=== PATIENT | female | born 1960 | race Caucasian/White ===

== ENCOUNTER → 2023-11-08 14:42 | Outpatient (CLI) | payer MEDICAID, SELFPAY | LOC: SL 14:48 | PROVIDERS: PCP Family Medicine; Visit Provider Nurse Practitioner Family | DX: R06.83 Snoring (principal); G47.36 Sleep related hypoventilation in conditions classified elsewhere | CPT/HCPCS: G0399 ==

== ENCOUNTER 2023-11-21 06:37 | Outpatient (CLI) | payer MEDICAID, SELFPAY ==
--- NOTE | 2023-11-21 07:53 | CA_ITS ---
FINAL REPORT TECHNIQUE: Color Doppler, duplex Doppler and sheikh scale sonography of the bilateral neck vasculature was performed. Velocities were measured in the carotid arteries. Stenosis evaluation based on velocity criteria. CLINICAL HISTORY: Eval for MILAN, history of TIA, scalp tingling, Smoker COMPARISON: None FINDINGS: The peak systolic velocity of the right common carotid artery is 96 cm/sec and internal carotid artery 126 cm/sec. The diastolic velocity in the internal carotid artery is 33 cm/sec. The ICA/CCA ratio is 1.55. Visually, a moderate amount of plaque is seen. These findings are consistent with less than 50% stenosis. The external carotid artery is patent. The right vertebral artery is patent with antegrade flow. The peak systolic velocity of the left common carotid artery is 95 cm/sec and internal carotid artery 139 cm/sec. The diastolic velocity in the internal carotid artery is 45 cm/sec. The ICA/CCA ratio is 1.46. Visually, a moderate amount of plaque is seen. These findings are consistent with less than 50% stenosis. The external carotid artery is patent. The left vertebral artery is patent with antegrade flow. IMPRESSION: Less than 50% stenosis in the carotid arteries bilaterally. Bilateral patent vertebral arteries. If indicated, CTA or MRA could further evaluate. Reviewed, Interpreted and Dictated by Miguel Abbott III, MD Transcribed by Lucita Rapp Authenticated and [facility]
--- NOTE | 2023-11-21 07:57 | XR_ITS ---
FINAL REPORT CLINICAL HISTORY: Back pain, hx of vertebral fracture, hyperreflexia COMPARISON: None FINDINGS: 3 views of the lumbar spine were obtained. There is a mild chronic L1 compression fracture. There is no acute fracture. The vertebral alignment is normal. There is mild degenerative change. Moderate vascular calcifications are noted. No acute paraspinous soft tissue abnormalities identified. IMPRESSION: Chronic changes without acute bony abnormality. Reviewed, Interpreted and Dictated by Miguel Abbott III, MD Transcribed by María Elena Nichols Authenticated and [facility]
[2023-11-21 08:29] LABS: Thyroid Stimulating Hormone 5.09 uIU/mL (0.465-4.68)
[2023-11-21 09:05] LABS: Vitamin B12 265 pg/mL (239-931)
[2023-11-21 09:21] LABS: Folate 6.65 ng/mL
== END 2023-11-21 23:59 ==
LOC: RAD 06:38
PROVIDERS: PCP Family Medicine; Visit Provider Nurse Practitioner Family
DX: M54.50 Low back pain, unspecified (principal); R20.8 Other disturbances of skin sensation; R29.2 Abnormal reflex; I10 Essential (primary) hypertension; E78.5 Hyperlipidemia, unspecified; Z86.73 Personal history of transient ischemic attack (TIA), and cerebral infarction without residual deficits; Z87.81 Personal history of (healed) traumatic fracture; Z72.0 Tobacco use
CPT/HCPCS: 36415; 72100; 82607; 82746; 84443; 93880